=== PATIENT | male | born 1965 | race Caucasian/White ===

== ENCOUNTER 2016-12-01 14:52 | Inpatient (IN) | payer MEDICARE, OTHER ==
[2016-12-01] MEDS ORDERED: IPRATROPIUM-ALBUTEROL 3 ML NEB INHALATION PRN (18:24)
[2016-12-01] MEDS: methylPREDNISolone SOD SUCCI 125 MG/2 ML VIAL IV SCH (19:30)
[2016-12-01] MEDS: SODIUM CHLORIDE 0.9% 1,000 ML IV SCH (20:23)
[2016-12-01] MEDS: AZITHROMYCIN 500 MG in SODIUM CHLORIDE 0.9% 250 ML IVPB SCH (21:24)
[2016-12-01] MEDS: INSULIN LISPRO (humaLOG) 300 UNIT/3 ML VIAL SQ SCH (21:26)
[2016-12-01 21:27] LABS: Glucose,Whole Blood 125 mg/dL (75-99)
[2016-12-01] MEDS: IPRATROPIUM-ALBUTEROL 3 ML NEB INHALATION SCH (21:41)
[2016-12-02] MEDS: methylPREDNISolone SOD SUCCI 125 MG/2 ML VIAL IV SCH ×5 (01:13→23:17)
[2016-12-02] MEDS: clonazePAM 1 MG TAB PO SCH ×3 (01:35→20:10)
[2016-12-02] MEDS: DOCUSATE 100 MG CAP PO SCH ×3 (01:35→20:01)
[2016-12-02] MEDS: cloZAPine 100 MG TAB PO SCH ×4 (01:35→20:10)
[2016-12-02 06:43] LABS: Aty Lym Flag Slight; CH 29.7; CHCM 32.3; HCT 39.6 % (39.0-53.0); HDW 2.55; MCH 30.2 pg (25.0-35.0); MCHC 32.7 g/dL (31.0-37.0); MCV 92.4 fL (80.0-100.0); Mean Platelet Volume 7.3; RBC 4.29 m/uL (4.30-5.90); RDW 14.8 % (11.5-15.5); WBC 6.8 k/uL (3.8-10.6); WBC (Perox) 6.65
[2016-12-02 07:00] LABS: Anion Gap 7 mmol/L; Blood Urea Nitrogen 15 mg/dL (9-20); Calcium 8.9 mg/dL (8.4-10.2); Carbon Dioxide 34 mmol/L (22-30); Chloride 103 mmol/L (98-107); Glucose 136 mg/dL (74-99); Non-African American GFR(MDRD) >60 (>60 ml/min/1.73 sqM); Potassium 3.6 mmol/L (3.5-5.1); Sodium 144 mmol/L (137-145)
[2016-12-02 07:32] LABS: Add Differential Manual Differential
[2016-12-02 07:36] LABS: Metamyelocytes % 3 %; Myelocytes % 1 %; Nucleated Red Blood Cells 0 /100 WBC (0-0); Total Cells Counted 200
[2016-12-02 07:53] LABS: Glucose,Whole Blood 145 mg/dL (75-99)
[2016-12-02] MEDS: AZITHROMYCIN 500 MG in SODIUM CHLORIDE 0.9% 250 ML IVPB SCH (08:19)
[2016-12-02] MEDS ORDERED: PANTOPRAZOLE 40 MG/10 ML VIAL IVP SCH (09:00)
[2016-12-02] MEDS: IPRATROPIUM-ALBUTEROL 3 ML NEB INHALATION SCH ×4 (09:16→20:48)
[2016-12-02 09:27] LABS: Glucose,Whole Blood 129 mg/dL (75-99)
--- NOTE | 2016-12-02 09:35 | CT ---
EXAMINATION TYPE: CT brain wo con for TPA DATE OF EXAM: 12/02/2016 COMPARISON: NONE INDICATION: Stroke symptoms DLP: 1094 mGycm, Automated exposure control for dose reduction was used. CONTRAST: None CT of the brain is performed utilizing 3 mm thick sections through the posterior fossa and 3 mm thick sections through the remaining calvarium. Study is performed within 24 hours of arrival to the hosp [facility]. Cochlear implant appears present on the left causing beam hardening artifact and some limitatio n. No abnormal hyperdensity is present to suggest an acute intracranial hemorrhage. No mass lesion is evident. No acute infarcts are evident. Periventricular white matter hypodensity is present, likely on the bas is of chronic white matter ischemic changes. Ventricles and sulci are appropriate for the patient age. Paranasal sinuses appear clear. Some minimal mucosal thickening or fluid is within the inferior left mastoid air cells. Partial mastoidectomy has been performed. Electronic device overlies the left roge etal region. IMPRESSIONS: 1. No acute intracranial process.
[2016-12-02 09:38] LABS: Glucose,Whole Blood 136 mg/dL (75-99)
[2016-12-02] MEDS ORDERED: RX INFO: IV CONTRAST WAS GIVEN 1 EACH MISC MISCELLANE PRN (10:02)
[2016-12-02 10:14] LABS: CH 29.9; CHCM 32.5; HCT 40.7 % (39.0-53.0); HDW 2.56; HGB 13.2 gm/dL (13.0-17.5); MCHC 32.4 g/dL (31.0-37.0); MCV 92.7 fL (80.0-100.0); Mean Platelet Volume 7.2; RDW 14.9 % (11.5-15.5)
[2016-12-02 10:27] LABS: INR 1.1 (<1.2); Prothrombin Time 10.7 sec (9.0-12.0)
[2016-12-02 10:28] LABS: Anion Gap 9 mmol/L; Blood Urea Nitrogen 16 mg/dL (9-20); Carbon Dioxide 33 mmol/L (22-30); Chloride 103 mmol/L (98-107); Cholesterol 166 mg/dL (<200); Creatine Kinase 33 U/L (55-170); Glucose 144 mg/dL (74-99); Non-African American GFR(MDRD) >60 (>60 ml/min/1.73 sqM); Potassium 3.6 mmol/L (3.5-5.1); Sodium 145 mmol/L (137-145)
--- NOTE | 2016-12-02 10:34 | HP ---
DATE OF SERVICE: 12/01/2016 CHIEF COMPLAINTS: Cough and pneumonia. HISTORY OF PRESENT ILLNESS: This 51-year-old gentleman with past medical history of hearing defect, history of hypertension, hyperlipidemia, history of schizophrenia being followed by Dr. Valente in the outpatient setting apparently went to wedding in [place] a week ago. On coming back the patient had fever, rigors, chills and cough. The patient was admitted with multifocal pneumonia at [facility] in [place]. Because of lack of improvement Dr. Hollis discussed the case at length with me over the phone. The patient was transferred to [facility] and admitted for further evaluation and treatment. The patient is hypoxic. There is no history of fever, rigors. Patient still has cough at this time. PAST MEDICAL HISTORY: Schizophrenia, hypertension, hyperlipidemia, history of hard of hearing. Medications are: 1. Prednisone 20 mg daily. 2. Clozaril 100 mg b.i.d. 3. Clozapine 400 mg q.h.s. 4. Norvasc 5 mg p.o. bid 5. Phenergan. 6. Prilosec 20 mg with breakfast. 7. Levaquin 750 q.24 hours. 8. Lorazepam 0.5 mg p.o. b.i.d. 9. DuoNeb 3 mL q.i.d. 10. Haldol 400 mg IM q.14 days. 11. Colace 100 mg p.o. b.i.d. 12. Benztropine 1 mg p.o. b.i.d. 13. Tenormin 100 mg q.h.s. 14. Tylenol 650 q.4 p.r.n. ALLERGIES: None. FAMILY HISTORY: No history of heart disease or strokes in the family. SOCIAL HISTORY: History of smoking, no history of alcohol intake. REVIEW OF SYSTEMS: ENT: No diminished hearing or vision. CARDIOVASCULAR: No angina, palpitations. RESPIRATORY: As mentioned earlier. GI: No nausea. : No dysuria. NERVOUS SYSTEM: No numbness or weakness. ALLERGY/IMMUNOLOGY: No asthma or hayfever. MUSCULOSKELETAL: As mentioned earlier. HEMATOLOGY/ONCOLOGY: No history of anemia. ENDOCRINE: No history of diabetes or hypothyroidism. CONSTITUTIONAL: As mentioned earlier. DERMATOLOGY: Negative. RHEUMATOLOGY: Negative. PSYCHIATRY: As mentioned earlier. PHYSICAL EXAMINATION: The patient is alert and oriented x3. Pulse is 68, blood pressure 161/91, respirations 15, temperature 97.8, pulse ox 96% on 2-L. HEENT: Conjunctivae normal. Oral mucosa moist. NECK: No jugular venous distention. No carotid bruit. No lymph node enlargement. CARDIOVASCULAR: S1, S2. No S3 or S4. RESPIRATORY: Breath sounds diminished at the bases. Scattered rhonchi and expiratory wheezing and crackles. ABDOMEN: Soft, nontender, no mass palpable. LEGS: No edema, no swelling. NERVOUS SYSTEM: Higher function as mentioned. Moves all four limbs. No focal motor sensory deficits. LYMPHATICS: No lymphadenopathy in the neck, axillae or groin. SKIN: No rash, ulcer or bleeding. LABS: The current labs are not available. The previous labs are reviewed. ASSESSMENT: 1. Chronic obstructive pulmonary disease acute exacerbation with multifocal pneumonia with failure of outpatient treatment. 2. History of nicotine dependence. 3. Hypertension. 4. Hyperlipidemia. 5. History of schizophrenia. 6. History of degenerative joint disease. RECOMMENDATIONS AND DISCUSSION: In this 51-year-old gentleman who presented with multiple complex medical issues, we well monitor the patient closely. Continue the current medications. Continue symptomatic treatment. Recommend broad-spectrum IV antibiotics. Obtain the cultures. IV steroids. Bronchodilators. Pulmonary consultation. DVT prophylaxis. Guarded prognosis because of multiple complex medical issues. Discussed with family at length who understands and agrees. Further recommendations to follow. See orders for details. Copy of dictation forwarded to Dr. Valente, who is the primary physician. FERNANDEZ
--- NOTE | 2016-12-02 10:47 | XR ---
EXAMINATION TYPE: XR chest 1V portable DATE OF EXAM: 12/02/2016 COMPARISON: 06/26/2015 HISTORY: Cough and congestion with concern for pneumonia TECHNIQUE: Single frontal view of the chest is obtained. FINDINGS: There is no focal air space opacity, pleural effusion, or pneumothorax seen. Hilar promine nce is unchanged from the prior and suggestive of pulmonary arterial hypertension. There is tortuosit y of the thoracic aorta. The cardiac silhouette size is within normal limits. The osseous structure s are intact. IMPRESSION: 1. No acute cardiac pulmonary process. 2. Hilar prominence, which could be related to underlying pulmonary arterial hypertension.
[2016-12-02 10:58] LABS: Partial Thromboplastin Time 21.8 sec (22.0-30.0)
[2016-12-02 11:54] LABS: Hemoglobin A1C 6.3 % (4.2-6.1)
[2016-12-02 11:55] LABS: Glucose,Whole Blood 133 mg/dL (75-99)
--- NOTE | 2016-12-02 12:06 | CT ---
EXAMINATION TYPE: CT angio head neck DATE OF EXAM: 12/02/2016 HISTORY: Lethargy, pneumonia COMPARISON: NONE CT DLP: 290.6 mGycm. Automated Exposure Control for Dose Reduction was Utilized. TECHNIQUE: CTA scan of the neck is performed with IV Contrast, patient injected with 65 mL of Omnipa que 350, axial images are obtained, coronal and sagittal reformatted images are reviewed. Three-D rec onstructed images are created on an independent workstation and reviewed. FINDINGS: Carotid/Vascular Structures: Carotid arteries bifurcate normally into internal and external carotid a rteries. Internal carotid arteries extend to the [place]. [place] appears intact. A 1 and M1 segments appear normal. Middle cerebral artery branches appear normal. Anterior communicatin g artery appears to be patent. Right posterior communicating artery is patent. Posterior cerebral vas culature is normal. Vertebrobasilar arteries are normal. Posterior cerebral vasculature is normal. No significant atheromatous plaquing is identified. No focal stenosis is evident. There is some limit ation to the thoracic inlet due to beam hardening artifact. Three-D [id number] reconstructed images are performed separately on the [employer] computer by the chnologist. Other: Lung apices within the [id number] appear unremarkable. Portion of the thyroid visualized is normal. Subglottic airway within the [id number]-gs-[id number] is normal. Soft tissues of the neck are unremarka ble. Parotid glands appear normal. Submandibular glands are unremarkable. Submental space is normal. Small retention cyst is within the inferior anterior left maxillary sinus. Torus tubarius and fossa o f [place] appear within normal limits. Some asymmetry may be within the [place]. IMPRESSION: 1. No significant flow-limiting stenosis.
[2016-12-02] MEDS: INSULIN LISPRO (humaLOG) 300 UNIT/3 ML VIAL SQ SCH ×4 (12:21→20:55)
[2016-12-02] MEDS: PANTOPRAZOLE 40 MG TABLET PO SCH (12:22)
[2016-12-02] MEDS: SODIUM CHLORIDE 0.9% 1,000 ML IV SCH ×3 (12:24→20:10)
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
[2016-12-02 16:46] LABS: Glucose,Whole Blood 139 mg/dL (75-99)
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
[2016-12-02 20:46] LABS: Glucose,Whole Blood 130 mg/dL (75-99)
[2016-12-03 05:45] LABS: Glucose,Whole Blood 126 mg/dL (75-99)
[2016-12-03] MEDS: PANTOPRAZOLE 40 MG TABLET PO SCH (05:45)
[2016-12-03] MEDS: INSULIN LISPRO (humaLOG) 300 UNIT/3 ML VIAL SQ SCH ×4 (05:45→21:17)
[2016-12-03] MEDS: methylPREDNISolone SOD SUCCI 125 MG/2 ML VIAL IV SCH ×4 (05:47→23:18)
[2016-12-03 06:41] LABS: Basophils % (A) 1 %; CH 29.7; CHCM 32.6; Eosinophils % (A) 0 %; HCT 41.2 % (39.0-53.0); HDW 2.38; Luc % (Auto) 3; Lymphocytes # (A) 0.6 k/uL (1.0-4.8); Lymphocytes % (A) 10 %; MCH 28.9 pg (25.0-35.0); MCHC 31.5 g/dL (31.0-37.0); MCV 91.8 fL (80.0-100.0); Mean Platelet Volume 7.1; Monocytes # (A) 0.4 k/uL (0-1.0); Monocytes % (A) 7 %; Neutrophils # (A) 4.7 k/uL (1.3-7.7); Neutrophils % (A) 79 %; RBC 4.48 m/uL (4.30-5.90); RDW 14.4 % (11.5-15.5); WBC 5.9 k/uL (3.8-10.6); WBC (Perox) 6.01
[2016-12-03 06:58] LABS: Anion Gap 12 mmol/L; Blood Urea Nitrogen 17 mg/dL (9-20); Calcium 9.2 mg/dL (8.4-10.2); Carbon Dioxide 30 mmol/L (22-30); Chloride 102 mmol/L (98-107); Glucose 136 mg/dL (74-99); Non-African American GFR(MDRD) >60 (>60 ml/min/1.73 sqM); Potassium 3.5 mmol/L (3.5-5.1); Sodium 144 mmol/L (137-145)
[2016-12-03] MEDS: IPRATROPIUM-ALBUTEROL 3 ML NEB INHALATION SCH ×4 (08:27→19:11)
[2016-12-03] MEDS: cloZAPine 100 MG TAB PO SCH ×3 (09:52→21:18)
[2016-12-03] MEDS: DOCUSATE 100 MG CAP PO SCH ×2 (09:53→21:17)
[2016-12-03] MEDS: clonazePAM 1 MG TAB PO SCH ×2 (09:53→21:27)
[2016-12-03] MEDS: SODIUM CHLORIDE 0.9% 1,000 ML IV SCH ×2 (09:54→21:25)
[2016-12-03 11:25] LABS: Glucose,Whole Blood 133 mg/dL (75-99)
--- NOTE | 2016-12-03 11:41 | P.PN ---
Subjective Principal diagnosis: Acute exacerbation of COPD and altered mental status This is a 51-year-old gentleman who has a history of schizoaffective disorder, deafness, chronic and ongoing tobacco dependence, hypertension. He follows with Dr. Valente and [facility] in the [facility]. He presented there earlier this week with complaints of a nonproductive cough and fever, 2 days. He was diagnosed with a left lower lobe pneumonia and hyponatremia and was recommended inpatient IV antibiotics. At that time the patient had left AMA on 11/28/2016. He went to his [facility] worker who brought him back to the emergency department he was subsequently admitted. A computed tomography scan of the brain did not reveal any acute intracranial process. A computed tomography scan of the chest without contrast revealed bilateral pneumonic infiltrates worse in the lingula left upper lobe and left lower lobe that was actually improved compared to an old computed tomography scan in 06/21/2015. He had healed granulomatous disease. No evidence of pulmonary mass. There is no new pulmonary infiltrate compared to the previous exam. He had been initiated on Rocephin and azithromycin. He had ongoing issues with shortness of breath, cough and congestion along with altered mental status and was subsequently transferred here for further evaluation. He was originally admitted to the regular medical floor. A code stroke was called and the patient earlier this morning based on worsening mental status, drooling and right-sided weakness during a transfer to the bedside commode chair. A computed tomography scan of the brain revealed no acute intracranial process. CT angiogram revealed no significant stenosis. His chest x-ray reveals no acute cardiopulmonary process. There is some underlying pulmonary arterial hypertension suspected secondary to hilar prominence. He is seen today in consultation on the selective care unit. No information is able to be pain from the patient. He is currently maintaining O2 saturations in the mid 90s on 4 L/m per nasal cannula. He is afebrile. No leukocytosis. No tachycardia, no tachypnea. Hemodynamically stable. Patient was reevaluated today on 12/03/2016, seems to be less short of breath, patient remains sleepy but arousable, does not talk much, speech seems to be garbled when he attempts to talk. Denies any specific complaints. I reviewed his chest x-ray and it was relatively unremarkable. Although his CT of the chest showed some possible old postinflammatory changes which have improved compared to previous scan of the chest. But clearly the chest x-ray itself does not speak in favor of pneumonia. CBC is normal and basic metabolic profile is normal. Objective - Vital Signs Vital signs: Vital Signs Temp 97.5 F L 12/03/16 04:00 Pulse 72 12/03/16 08:30 Resp 16 12/03/16 08:00 BP 131/64 12/03/16 08:00 Pulse Ox 92 L 12/03/16 08:00 Intake & Output 12/02/16 12/03/16 12/03/16 18:59 06:59 18:59 Intake Total 300 800 Output Total 2200 1400 Balance -1900 -600 Weight 72.1 kg Intake: Intake, IV Titration 300 800 Amount Sodium Chloride 0.9% 1, 300 700 000 ml @ 100 mls/hr IV . Q10H [facility] Rx#:[id number] cefTRIAXone 1,000 mg In 100 Sodium Chloride 0.9% 50 ml @ 100 mls/hr IVPB Q24HR [facility] Rx#:[id number] Oral 0 Output: Urine 2200 1400 Straight 850 400 Other: Voiding Method Incontinent Incontinent Incontinent # Voids 1 3 - Exam GENERAL EXAM: Drowsy, difficult to arouse. HEAD: Normocephalic. EYES: Normal reaction of pupils, equal size. NOSE: Clear with pink turbinates. THROAT: No erythema or exudates. NECK: No masses, no JVD. CHEST: No chest wall deformity. LUNGS: Equal air entry with bilateral wheezing, few scattered rhonchi. Diminished.. CVS: S1 and S2 normal with no audible mumurs, regular rhythm. ABDOMEN: No hepatosplenomegaly, normal bowel sounds, no guarding or rigidity. Extremities: There is trace peripheral edema. No clubbing, no cyanosis. Peripheral pulses are intact. - Labs CBC & Chem 7: 12/03/16 06:10 12/03/16 06:07 Labs: Abnormal Lab Results - Last 24 Hours (Table) 12/02/16 12/02/16 12/02/16 Range/Units 06:21 11:53 16:44 Lymphocytes # (1.0-4.8) k/uL Creatinine (0.66-1.25) mg/dL Glucose (74-99) mg/dL POC Glucose (mg/dL) 133 H 139 H (75-99) mg/dL Hemoglobin A1c 6.3 H (4.2-6.1) % 12/02/16 12/03/16 12/03/16 Range/Units 20:45 05:44 06:07 Lymphocytes # (1.0-4.8) k/uL Creatinine 0.60 L (0.66-1.25) mg/dL Glucose 136 H (74-99) mg/dL POC Glucose (mg/dL) 130 H 126 H (75-99) mg/dL Hemoglobin A1c (4.2-6.1) % 12/03/16 12/03/16 Range/Units 06:10 11:21 Lymphocytes # 0.6 L (1.0-4.8) k/uL Creatinine (0.66-1.25) mg/dL Glucose (74-99) mg/dL POC Glucose (mg/dL) 133 H (75-99) mg/dL Hemoglobin A1c (4.2-6.1) % Assessment and Plan Plan: #1 Acute exacerbation of chronic obstructive pulmonary disease, complicated by purulent tracheobronchitis versus community-acquired pneumonia. Clinically and based on the chest x-ray, I strongly doubt pneumonia. I believe the findings on the CT of the chest are chronic and mostly postinflammatory in nature. #2 Altered mental status of unclear etiology. Computed tomography scan of the brain reveals no acute intracranial process. CT angiogram reveals no significant stenosis. Neurology consult pending. #3 Chronic and ongoing tobacco dependence. #4 History of hypertension. #5 History of schizophrenia. #6 Hyperlipidemia. #7 History of degenerative joint disease. Recommendation: Continue antibiotics empirically, continue bronchodilators, mental status and neurological status is being addressed by neurology on consultation. We'll continue to follow. Time with Patient: Less than 30
[2016-12-03] MEDS: AZITHROMYCIN 500 MG in SODIUM CHLORIDE 0.9% 250 ML IVPB SCH (12:01)
--- NOTE | 2016-12-03 12:05 | CT ---
EXAMINATION TYPE: CT brain wo con DATE OF EXAM: 12/03/2016 COMPARISON: Yesterday HISTORY: CVA CT DLP: 1009.0 mGycm Automated exposure control for dose reduction was used. FINDINGS: Ventricles are fairly normal size. There is no mass effect nor midline shift. There is no sign of int racranial hemorrhage. There is metal artifact from left side implant at the temporal bone. IMPRESSION: NEGATIVE CT SCAN OF THE BRAIN. NO CHANGE COMPARED TO YESTERDAY.
[2016-12-03 16:52] LABS: Glucose,Whole Blood 127 mg/dL (75-99)
--- NOTE | 2016-12-03 20:26 | P.PN ---
Subjective This patient is a 51-year-old male who is being followed closely for history of recent TIA versus stroke. Patient was unable to have MRI of the brain due to a hearing device implanted in his left side. He has a history of schizophrenia and is being followed by his primary care physician for this condition. His legal guardian was at bedside today and states that he has been living independently at home and was managing fairly well. He does continue to have difficulty with his speech but he does lip read. He was sent for a repeat computed tomography scan of the brain today which reveals no acute changes. No evidence of acute stroke or hemorrhage. We will continue close neurological follow this patient during this admission. Objective - Vital Signs Vital signs: Vital Signs Temp 97.5 F L 12/03/16 04:00 Pulse 88 12/03/16 19:19 Resp 18 12/03/16 16:00 BP 150/94 12/03/16 16:00 Pulse Ox 93 L 12/03/16 16:00 Intake & Output 12/03/16 12/03/16 12/04/16 06:59 18:59 06:59 Intake Total 800 Output Total 1400 Balance -600 Weight 72.1 kg 72.1 kg Intake: Intake, IV Titration 800 Amount Sodium Chloride 0.9% 1, 700 000 ml @ 100 mls/hr IV . Q10H [facility] Rx#:[id number] cefTRIAXone 1,000 mg In 100 Sodium Chloride 0.9% 50 ml @ 100 mls/hr IVPB Q24HR [facility] Rx#:[id number] Oral 0 Output: Urine 1400 Straight 400 Other: Voiding Method Incontinent Toilet Incontinent # Voids 3 4 - Exam Physical examination: PHYSICAL EXAMINATION: Patient is resting comfortably in bed. VITAL SIGNS: Blood pressure is [150/94]. Heart rate is [76]. Respiration is [18] . Temperature is [97.5]. HEENT: Head is atraumatic, neck is supple, there were no carotid bruits. CHEST: Lungs are clear to auscultation and percussion. CARDIAC: S1, S2 normal rate and rhythm. There is no murmur. ABDOMEN: Soft and nontender. Bowel sounds are present. EXTREMITIES: There is no pedal edema. Peripheral pulses are present . Neurological examination: Patient neurological examinations unchanged from yesterday. - Labs CBC & Chem 7: 12/03/16 06:10 12/03/16 06:07 Labs: Abnormal Lab Results - Last 24 Hours (Table) 12/02/16 12/03/16 12/03/16 Range/Units 20:45 05:44 06:07 Lymphocytes # (1.0-4.8) k/uL Creatinine 0.60 L (0.66-1.25) mg/dL Glucose 136 H (74-99) mg/dL POC Glucose (mg/dL) 130 H 126 H (75-99) mg/dL 12/03/16 12/03/16 12/03/16 Range/Units 06:10 11:21 16:50 Lymphocytes # 0.6 L (1.0-4.8) k/uL Creatinine (0.66-1.25) mg/dL Glucose (74-99) mg/dL POC Glucose (mg/dL) 133 H 127 H (75-99) mg/dL Assessment and Plan (1) Acute encephalopathy Status: Acute Code(s): G93.40 - ENCEPHALOPATHY, UNSPECIFIED (2) TIA (transient ischemic attack) Status: Acute Code(s): G45.9 - TRANSIENT CEREBRAL ISCHEMIC ATTACK, UNSPECIFIED (3) Schizophrenia Status: Acute Code(s): F20.9 - SCHIZOPHRENIA, UNSPECIFIED (4) Pneumonia Status: Acute Code(s): J18.9 - PNEUMONIA, UNSPECIFIED ORGANISM (5) COPD (chronic obstructive pulmonary disease) Status: Acute Code(s): J44.9 - CHRONIC OBSTRUCTIVE PULMONARY DISEASE, UNSPECIFIED Plan: This patient is a 51-year-old male with a complex past medical history which includes history of schizophrenia and mental impairment. Patient was admitted to hospital for treatment of pneumonia and chronic bronchitis. He has been followed by pulmonary medicine. He is currently on antibiotic therapy. Early this morning at 9 AM a code stroke was initiated for this patient as he developed sudden onset of right-sided weakness. He underwent a computed tomography scan of the brain as well as a CTA angiogram both of which were negative. Neuro interventional group was contacted and he was deemed not to be a candidate for TPA or other intervention. He was transferred to [facility] for close monitoring. His neurological examination at this time is limited as he is not able to follow much commands. He does have some evidence of aphasia which may be old. His neuro imaging studies were reviewed today and is noted were negative. We have recommended a follow-up computed tomography scan of the brain for tomorrow. He is unable to have an MRI at this time until he is cleared as he has some implantable device on his left retro-orbital region. We will continue complete stroke evaluation for the patient. His overall prognosis at this time remains very guarded.
[2016-12-03 20:32] LABS: Glucose,Whole Blood 114 mg/dL (75-99)
--- NOTE | 2016-12-04 00:12 | P.PN ---
Subjective Principal diagnosis: Acute COPD exacerbation and purulent tracheobronchitis This is a 51-year-old gentleman who has a history of schizoaffective disorder, deafness, chronic and ongoing tobacco dependence, hypertension who presented there earlier this week with complaints of a nonproductive cough and fever, 2 days. He was diagnosed with a left lower lobe pneumonia and hyponatremia and was recommended inpatient IV antibiotics. At that time the patient had left AMA on 11/28/2016. Patient came back to the hospital and found to have encephalopathic. 12/03/2016 Patient is very drowsy but still a arousable. Denies any complaints of chest pain. No nausea vomiting or abdominal pain chest x-ray and CT chest that was done showed improvement in inflammatory changes.. Patient had repeat computed tomography scan of the head was done due to and Savella for the showed no acute CVA. Neurology and pulmonary is following this patient. Objective - Vital Signs Vital signs: Vital Signs Temp 97.5 F L 12/03/16 04:00 Pulse 88 12/03/16 19:19 Resp 18 12/03/16 16:00 BP 150/94 12/03/16 16:00 Pulse Ox 93 L 12/03/16 16:00 Intake & Output 12/03/16 12/03/16 12/04/16 06:59 18:59 06:59 Intake Total 800 Output Total 1400 Balance -600 Weight 72.1 kg 72.1 kg Intake: Intake, IV Titration 800 Amount Sodium Chloride 0.9% 1, 700 000 ml @ 100 mls/hr IV . Q10H [facility] Rx#:[id number] cefTRIAXone 1,000 mg In 100 Sodium Chloride 0.9% 50 ml @ 100 mls/hr IVPB Q24HR [facility] Rx#:[id number] Oral 0 Output: Urine 1400 Straight 400 Other: Voiding Method Incontinent Toilet Incontinent # Voids 3 4 - Exam PHYSICAL EXAMINATION: Patient is lying in the bed comfortably, no acute distress, awake alert but seems to be very drowsy.. HEENT: Normocephalic. Neck is supple. Pupils reactive. Nostrils clear. Oral cavity is moist. Ears reveal no drainage. Neck reveals no JVD, carotid bruits, or thyromegaly. CHEST EXAMINATION: Trachea is central. Symmetrical expansion. Lateral bronchi and minimal wheezing positive CARDIAC: Normal S1, S2 with no gallops. No murmurs ABDOMEN: Soft. Bowel sounds normal. No organomegaly. No abdominal bruits. Extremities reveal no edema. No clubbing or cyanosis Neurologically awake, alert, oriented x3 with well-coordinated movements. Skin: no rash or skin lesions Musculoskeletal: no joint swelling or deformity. - Labs CBC & Chem 7: 12/03/16 06:10 12/03/16 06:07 Labs: Abnormal Lab Results - Last 24 Hours (Table) 12/03/16 12/03/16 12/03/16 Range/Units 05:44 06:07 06:10 Lymphocytes # 0.6 L (1.0-4.8) k/uL Creatinine 0.60 L (0.66-1.25) mg/dL Glucose 136 H (74-99) mg/dL POC Glucose (mg/dL) 126 H (75-99) mg/dL 12/03/16 12/03/16 12/03/16 Range/Units 11:21 16:50 20:31 Lymphocytes # (1.0-4.8) k/uL Creatinine (0.66-1.25) mg/dL Glucose (74-99) mg/dL POC Glucose (mg/dL) 133 H 127 H 114 H (75-99) mg/dL Assessment and Plan Plan: #1 Acute exacerbation of chronic obstructive pulmonary disease, complicated by purulent tracheobronchitis versus community-acquired pneumonia. #2 Altered mental status/encephalopathy of unclear etiology. Computed tomography scan of the brain reveals no acute intracranial process. CT angiogram reveals no significant stenosis. Neurology is following. Repeat computed tomography scan showed no acute process #3 Chronic and ongoing tobacco dependence. #4 History of hypertension. #5 History of schizophrenia. #6 Hyperlipidemia. Plan: Patiently continued on antibiotics in the form of ceftriaxone and azithromycin. Continue the breathing treatments. And follow closely. Neurology and pulmonary is on board. Patient is still encephalopathic but improving slowly. Note as of CVA noted in the repeat CT head. Further recommendations based on the clinical course Time with Patient: Greater than 30
[2016-12-04] MEDS: methylPREDNISolone SOD SUCCI 125 MG/2 ML VIAL IV SCH ×4 (05:26→23:11)
[2016-12-04] MEDS: SODIUM CHLORIDE 0.9% 1,000 ML IV SCH ×2 (05:26→18:07)
[2016-12-04] MEDS: PANTOPRAZOLE 40 MG TABLET PO SCH (05:28)
[2016-12-04 06:00] LABS: Glucose,Whole Blood 118 mg/dL (75-99)
[2016-12-04] MEDS: INSULIN LISPRO (humaLOG) 300 UNIT/3 ML VIAL SQ SCH ×4 (06:07→22:29)
[2016-12-04 06:55] LABS: Basophils % (A) 0 %; CH 29.8; CHCM 32.6; Eosinophils % (A) 0 %; HCT 42.7 % (39.0-53.0); HDW 2.37; HGB 13.7 gm/dL (13.0-17.5); Luc # (Auto) 0.16; Luc % (Auto) 2; Lymphocytes # (A) 0.6 k/uL (1.0-4.8); Lymphocytes % (A) 9 %; MCH 29.4 pg (25.0-35.0); MCV 91.8 fL (80.0-100.0); Monocytes # (A) 0.5 k/uL (0-1.0); Monocytes % (A) 8 %; Neutrophils # (A) 5.3 k/uL (1.3-7.7); Neutrophils % (A) 80 %; RBC 4.65 m/uL (4.30-5.90); RDW 14.6 % (11.5-15.5); WBC 6.6 k/uL (3.8-10.6); WBC (Perox) 6.74
[2016-12-04 07:19] LABS: Anion Gap 10 mmol/L; Blood Urea Nitrogen 22 mg/dL (9-20); Calcium 9.6 mg/dL (8.4-10.2); Carbon Dioxide 31 mmol/L (22-30); Chloride 107 mmol/L (98-107); Glucose 132 mg/dL (74-99); Non-African American GFR(MDRD) >60 (>60 ml/min/1.73 sqM); Potassium 3.9 mmol/L (3.5-5.1); Sodium 148 mmol/L (137-145)
[2016-12-04] MEDS: IPRATROPIUM-ALBUTEROL 3 ML NEB INHALATION SCH ×4 (08:35→20:53)
--- NOTE | 2016-12-04 10:56 | P.PN ---
Subjective Principal diagnosis: Acute exacerbation of COPD and altered mental status This is a 51-year-old gentleman who has a history of schizoaffective disorder, deafness, chronic and ongoing tobacco dependence, hypertension. He follows with Dr. Valente and [facility] the [facility]. He presented there earlier this week with complaints of a nonproductive cough and fever, 2 days. He was diagnosed with a left lower lobe pneumonia and hyponatremia and was recommended inpatient IV antibiotics. At that time the patient had left AMA on 11/28/2016. He went to his [facility] worker who brought him back to the emergency department he was subsequently admitted. A computed tomography scan of the brain did not reveal any acute intracranial process. A computed tomography scan of the chest without contrast revealed bilateral pneumonic infiltrates worse in the lingula left upper lobe and left lower lobe that was actually improved compared to an old computed tomography scan in 06/21/2015. He had healed granulomatous disease. No evidence of pulmonary mass. There is no new pulmonary infiltrate compared to the previous exam. He had been initiated on Rocephin and azithromycin. He had ongoing issues with shortness of breath, cough and congestion along with altered mental status and was subsequently transferred here for further evaluation. He was originally admitted to the regular medical floor. A code stroke was called and the patient earlier this morning based on worsening mental status, drooling and right-sided weakness during a transfer to the bedside commode chair. A computed tomography scan of the brain revealed no acute intracranial process. CT angiogram revealed no significant stenosis. His chest x-ray reveals no acute cardiopulmonary process. There is some underlying pulmonary arterial hypertension suspected secondary to hilar prominence. He is seen today in consultation on the selective care unit. No information is able to be pain from the patient. He is currently maintaining O2 saturations in the mid 90s on 4 L/m per nasal cannula. He is afebrile. No leukocytosis. No tachycardia, no tachypnea. Hemodynamically stable. Patient was reevaluated today on 12/03/2016, seems to be less short of breath, patient remains sleepy but arousable, does not talk much, speech seems to be garbled when he attempts to talk. Denies any specific complaints. I reviewed his chest x-ray and it was relatively unremarkable. Although his CT of the chest showed some possible old postinflammatory changes which have improved compared to previous scan of the chest. But clearly the chest x-ray itself does not speak in favor of pneumonia. CBC is normal and basic metabolic profile is normal. Patient was reevaluated today, this is on 12/04/2016, patient is more awake, seems to be a bit more appropriate today, but still has a long way to go. Patient continues to have cough and wheezing, and apparently he failed his a swallow evaluation, and he is presently nothing by mouth. Hopefully the swallow evaluation will be repeated next week, and if he continues to fail may have to consider a PEG tube placement in this patient. On physical examination he continues to have diffuse rhonchi and wheezes bilaterally and he remains on bronchodilators. Objective - Vital Signs Vital signs: Vital Signs Temp 96.9 F L 12/04/16 08:00 Pulse 76 12/04/16 08:54 Resp 22 12/04/16 08:00 BP 125/83 12/04/16 08:00 Pulse Ox 95 12/04/16 08:35 Intake & Output 12/03/16 12/04/16 12/04/16 18:59 06:59 18:59 Intake Total 700 Balance 700 Weight 72.1 kg 68.9 kg Intake: Intake, IV Titration 700 Amount Sodium Chloride 0.9% 1, 700 000 ml @ 100 mls/hr IV . Q10H [facility] Rx#:[id number] Other: Voiding Method Toilet Toilet Toilet Incontinent Incontinent Incontinent # Voids 4 1 - Exam GENERAL EXAM: Drowsy, difficult to arouse. HEAD: Normocephalic. EYES: Normal reaction of pupils, equal size. NOSE: Clear with pink turbinates. THROAT: No erythema or exudates. NECK: No masses, no JVD. CHEST: No chest wall deformity. LUNGS: Equal air entry with bilateral wheezing, few scattered rhonchi. Diminished.. CVS: S1 and S2 normal with no audible mumurs, regular rhythm. ABDOMEN: No hepatosplenomegaly, normal bowel sounds, no guarding or rigidity. Extremities: There is trace peripheral edema. No clubbing, no cyanosis. Peripheral pulses are intact. - Labs CBC & Chem 7: 12/04/16 06:26 12/04/16 06:25 Labs: Abnormal Lab Results - Last 24 Hours (Table) 12/03/16 12/03/16 12/03/16 Range/Units 11:21 16:50 20:31 Lymphocytes # (1.0-4.8) k/uL Sodium (137-145) mmol/L Carbon Dioxide (22-30) mmol/L BUN (9-20) mg/dL Glucose (74-99) mg/dL POC Glucose (mg/dL) 133 H 127 H 114 H (75-99) mg/dL 12/04/16 12/04/16 12/04/16 Range/Units 05:55 06:25 06:26 Lymphocytes # 0.6 L (1.0-4.8) k/uL Sodium 148 H (137-145) mmol/L Carbon Dioxide 31 H (22-30) mmol/L BUN 22 H (9-20) mg/dL Glucose 132 H (74-99) mg/dL POC Glucose (mg/dL) 118 H (75-99) mg/dL Assessment and Plan Plan: #1 Acute exacerbation of chronic obstructive pulmonary disease, complicated by purulent tracheobronchitis versus community-acquired pneumonia. Versus aspiration pneumonitis. Clinically and based on the chest x-ray, I strongly doubt pneumonia. I believe the findings on the CT of the chest are chronic and mostly postinflammatory in nature. #2 Altered mental status of unclear etiology. Computed tomography scan of the brain reveals no acute intracranial process. CT angiogram reveals no significant stenosis. Neurology consult pending. #3 Chronic and ongoing tobacco dependence. #4 History of hypertension. #5 History of schizophrenia. #6 Hyperlipidemia. #7 History of degenerative joint disease. 8 suspect ongoing microaspiration which may explain his CT of the chest findings not clearly appreciated on the chest x-ray. Recommendation: Continue antibiotics empirically, continue bronchodilators, mental status and neurological status is being addressed by neurology on consultation. We'll continue to follow. Repeat swallow evaluation tomorrow, and if the patient continues to have issues with swallowing evaluation, may have to consider a PEG tube placement. Time with Patient: Less than 30
[2016-12-04 11:31] LABS: Glucose,Whole Blood 129 mg/dL (75-99)
[2016-12-04] MEDS: AZITHROMYCIN 500 MG in SODIUM CHLORIDE 0.9% 250 ML IVPB SCH (12:41)
[2016-12-04] MEDS: cloZAPine 100 MG TAB PO SCH ×3 (12:45→20:54)
[2016-12-04] MEDS: BENZTROPINE MESYLATE 1 MG TAB PO SCH ×2 (12:46→20:55)
[2016-12-04] MEDS: DOCUSATE 100 MG CAP PO SCH ×2 (12:46→20:54)
[2016-12-04] MEDS: amLODIPine 5 MG TAB PO SCH (12:46)
[2016-12-04] MEDS: clonazePAM 1 MG TAB PO SCH ×2 (12:46→20:54)
[2016-12-04 16:30] LABS: Glucose,Whole Blood 119 mg/dL (75-99)
[2016-12-04] MEDS: DEXTROSE 5%-0.45% NACL 1,000 ML IV SCH (18:07)
[2016-12-04 20:46] LABS: Glucose,Whole Blood 188 mg/dL (75-99)
--- NOTE | 2016-12-05 01:49 | P.PN ---
Subjective Principal diagnosis: Acute COPD exacerbation and purulent tracheobronchitis This is a 51-year-old gentleman who has a history of schizoaffective disorder, deafness, chronic and ongoing tobacco dependence, hypertension who presented there earlier this week with complaints of a nonproductive cough and fever, 2 days. He was diagnosed with a left lower lobe pneumonia and hyponatremia and was recommended inpatient IV antibiotics. At that time the patient had left AMA on 11/28/2016. Patient came back to the hospital and found to have encephalopathic. 12/03/2016 Patient is very drowsy but still a arousable. Denies any complaints of chest pain. No nausea vomiting or abdominal pain chest x-ray and CT chest that was done showed improvement in inflammatory changes.. Patient had repeat computed tomography scan of the head was done due to and Savella for the showed no acute CVA. Neurology and pulmonary is following this patient. 12/04/2016 Patient is more awake and oriented today. Patient otherwise feels sterilization currently nothing by mouth and will be started on D5 half normal saline. Patient is to have wheezing and decreased air entry bilaterally. Swallow study will be attempted again next week. No fever no chills. Objective - Vital Signs Vital signs: Vital Signs Temp 98.3 F 12/04/16 15:23 Pulse 82 12/04/16 21:02 Resp 14 12/04/16 16:00 BP 154/93 12/04/16 15:23 Pulse Ox 96 12/04/16 17:11 Intake & Output 12/04/16 12/04/16 12/05/16 06:59 18:59 06:59 Intake Total 700 Balance 700 Weight 68.9 kg Intake: Intake, IV Titration 700 Amount Sodium Chloride 0.9% 1, 700 000 ml @ 100 mls/hr IV . Q10H [facility] Rx#:[id number] Other: Voiding Method Toilet Toilet Incontinent Incontinent # Voids 1 3 2 - Exam PHYSICAL EXAMINATION: Patient is lying in the bed comfortably, no acute distress, awake alert but seems to be very drowsy.. HEENT: Normocephalic. Neck is supple. Pupils reactive. Nostrils clear. Oral cavity is moist. Ears reveal no drainage. Neck reveals no JVD, carotid bruits, or thyromegaly. CHEST EXAMINATION: Trachea is central. Symmetrical expansion. biLateral rhonchi and decreased air entry and minimal wheezing positive CARDIAC: Normal S1, S2 with no gallops. No murmurs ABDOMEN: Soft. Bowel sounds normal. No organomegaly. No abdominal bruits. Extremities reveal no edema. No clubbing or cyanosis Neurologically awake, alert, oriented x3 with well-coordinated movements. Patient is deaf Skin: no rash or skin lesions Musculoskeletal: no joint swelling or deformity. - Labs CBC & Chem 7: 12/04/16 06:26 12/04/16 06:25 Labs: Abnormal Lab Results - Last 24 Hours (Table) 12/04/16 12/04/16 12/04/16 Range/Units 05:55 06:25 06:26 Lymphocytes # 0.6 L (1.0-4.8) k/uL Sodium 148 H (137-145) mmol/L Carbon Dioxide 31 H (22-30) mmol/L BUN 22 H (9-20) mg/dL Glucose 132 H (74-99) mg/dL POC Glucose (mg/dL) 118 H (75-99) mg/dL 12/04/16 12/04/16 12/04/16 Range/Units 11:22 16:24 20:44 Lymphocytes # (1.0-4.8) k/uL Sodium (137-145) mmol/L Carbon Dioxide (22-30) mmol/L BUN (9-20) mg/dL Glucose (74-99) mg/dL POC Glucose (mg/dL) 129 H 119 H 188 H (75-99) mg/dL Assessment and Plan Plan: #1 Acute exacerbation of chronic obstructive pulmonary disease, complicated by purulent tracheobronchitis versus community-acquired pneumonia. #2 Altered mental status/encephalopathy of unclear etiology. Computed tomography scan of the brain reveals no acute intracranial process. CT angiogram reveals no significant stenosis. Neurology is following. Repeat computed tomography scan showed no acute process #3 Chronic and ongoing tobacco dependence. #4 History of hypertension. #5 History of schizophrenia. #6 Hyperlipidemia. #7 difficulty swallowing and failed swallow study. We'll start on gentle hydration and repeat swallow evaluation Plan: Patiently continued on antibiotics in the form of ceftriaxone and azithromycin. Continue the breathing treatments. And follow closely. Neurology and pulmonary is on board. Patient is still encephalopathic but improving slowly. Note as of CVA noted in the repeat CT head. Patient fails swallow evaluation and is nothing by mouth. Further recommendations based on the clinical course Time with Patient: Greater than 30
[2016-12-05] MEDS: DEXTROSE 5%-0.45% NACL 1,000 ML IV SCH ×2 (04:55→20:35)
[2016-12-05 05:41] LABS: Glucose,Whole Blood 125 mg/dL (75-99)
[2016-12-05] MEDS: INSULIN LISPRO (humaLOG) 300 UNIT/3 ML VIAL SQ SCH ×4 (06:10→21:54)
[2016-12-05] MEDS: PANTOPRAZOLE 40 MG TABLET PO SCH (06:10)
[2016-12-05] MEDS: methylPREDNISolone SOD SUCCI 125 MG/2 ML VIAL IV SCH ×4 (06:12→23:30)
[2016-12-05] MEDS: IPRATROPIUM-ALBUTEROL 3 ML NEB INHALATION SCH ×4 (09:00→19:38)
[2016-12-05] MEDS: BENZTROPINE MESYLATE 1 MG TAB PO SCH ×2 (09:56→20:35)
[2016-12-05] MEDS: clonazePAM 1 MG TAB PO SCH ×2 (09:56→20:35)
[2016-12-05] MEDS: amLODIPine 5 MG TAB PO SCH (09:56)
[2016-12-05] MEDS: DOCUSATE 100 MG CAP PO SCH ×2 (09:56→20:35)
[2016-12-05] MEDS: AZITHROMYCIN 500 MG in SODIUM CHLORIDE 0.9% 250 ML IVPB SCH (09:56)
[2016-12-05] MEDS: cloZAPine 100 MG TAB PO SCH ×3 (09:57→23:29)
[2016-12-05 11:44] LABS: Glucose,Whole Blood 169 mg/dL (75-99)
--- NOTE | 2016-12-05 11:55 | P.PN ---
Subjective Progress note dated 12/05/2016 This is a 51-year-old male seen by my partner yesterday. He has a history of acute exacerbation of COPD, treated by purulent tracheobronchitis versus community-acquired pneumonia/aspiration pneumonia. We strongly doubt pneumonia though based on his chest x-ray and his history. His altered mental status changes but a computed tomography scan which showed no evidence of an acute process chronic and ongoing tobacco dependence hypertension schizophrenia hyperlipidemia DJD. The patient seemed be doing better. Feels better. Less short of breath. Currently on antibiotics bronchodilators and corticosteroids. Should have a swallow evaluation is not ready done. May have to have a PEG tube placement. Other than that seems be doing reasonably well. Objective - Vital Signs Vital signs: Vital Signs Temp 97.3 F L 12/05/16 11:44 Pulse 70 12/05/16 11:44 Resp 16 12/05/16 11:44 BP 123/74 12/05/16 11:44 Pulse Ox 93 L 12/05/16 11:44 Intake & Output 12/04/16 12/05/16 12/05/16 18:59 06:59 18:59 Intake Total 640 Balance 640 Weight 69.8 kg Intake: Intake, IV Titration 640 Amount Dextrose 5%-0.45% NaCl 1, 640 000 ml @ 80 mls/hr IV . [id number] [facility] Rx#:[id number] Other: Voiding Method Toilet Toilet Toilet Incontinent Incontinent Incontinent # Voids 3 3 - Exam No acute distress, oriented 3. No respiratory distress. HEENT examination is grossly unremarkable. Mucous membranes are moist. No oral lesions. Neck supple. Full range of motion. No adenopathy or thyromegaly. Cardiovascular examination reveals regular rhythm rate. S1-S2 normal. No S3- S4 or murmur. Lungs reveal a few coarse rhonchi. Breath sounds are diminished. Some expiratory wheezes. Breath sounds are equal but diminished throughout. There is prolongation on forced maneuver. Abdomen soft bowel sounds are heard. Semis are intact. No cyanosis clubbing or edema. Skin without rash. Neurologic examination is nonfocal. - Labs CBC & Chem 7: 12/04/16 06:26 12/04/16 06:25 Labs: Abnormal Lab Results - Last 24 Hours (Table) 12/04/16 12/04/16 12/05/16 Range/Units 16:24 20:44 05:39 POC Glucose (mg/dL) 119 H 188 H 125 H (75-99) mg/dL 12/05/16 Range/Units 11:39 POC Glucose (mg/dL) 169 H (75-99) mg/dL Assessment and Plan (1) Hypertension Status: Acute (2) DJD (degenerative joint disease) Status: Acute (3) Acute encephalopathy Status: Acute (4) Pneumonia Status: Acute (5) Schizophrenia Status: Acute (6) TIA (transient ischemic attack) Status: Acute (7) COPD (chronic obstructive pulmonary disease) Status: Acute Plan: Plan dated 12/05/2016 The patient's overall lung status seems to be somewhat improved. We'll continue to follow closely. The patient will continue on oxygen therapy bronchodilators corticosteroids and antibiotics. Neurology is following his mental status is reasonably evaluated by speech pathology for his swallow competency. We'll continue to follow. Prognosis is guarded. Time with Patient: Less than 30
[2016-12-05 15:44] LABS: Anion Gap 11 mmol/L; Blood Urea Nitrogen 22 mg/dL (9-20); Calcium 9.3 mg/dL (8.4-10.2); Carbon Dioxide 27 mmol/L (22-30); Chloride 106 mmol/L (98-107); Glucose 162 mg/dL (74-99); Non-African American GFR(MDRD) >60 (>60 ml/min/1.73 sqM); Potassium 3.5 mmol/L (3.5-5.1); Sodium 144 mmol/L (137-145)
[2016-12-05 16:56] LABS: Glucose,Whole Blood 148 mg/dL (75-99)
[2016-12-05 20:51] LABS: Glucose,Whole Blood 201 mg/dL (75-99)
--- NOTE | 2016-12-06 00:08 | P.PN ---
Subjective Principal diagnosis: Acute COPD exacerbation and purulent tracheobronchitis This is a 51-year-old gentleman who has a history of schizoaffective disorder, deafness, chronic and ongoing tobacco dependence, hypertension who presented there earlier this week with complaints of a nonproductive cough and fever, 2 days. He was diagnosed with a left lower lobe pneumonia and hyponatremia and was recommended inpatient IV antibiotics. At that time the patient had left AMA on 11/28/2016. Patient came back to the hospital and found to have encephalopathic. 12/03/2016 Patient is very drowsy but still a arousable. Denies any complaints of chest pain. No nausea vomiting or abdominal pain chest x-ray and CT chest that was done showed improvement in inflammatory changes.. Patient had repeat computed tomography scan of the head was done due to and Savella for the showed no acute CVA. Neurology and pulmonary is following this patient. 12/04/2016 Patient is more awake and oriented today. currently nothing by mouth and will be started on D5 half normal saline. Patient is to have wheezing and decreased air entry bilaterally. Swallow study will be attempted again next week. No fever no chills. 12/05/2016 Patient is more awake and oriented. Patient was started on soft diet. No fever no chills. No complaints of chest pain or short of breath. Objective - Vital Signs Vital signs: Vital Signs Temp 97.6 F 12/05/16 16:00 Pulse 86 12/05/16 19:54 Resp 18 12/05/16 16:00 BP 121/69 12/05/16 16:00 Pulse Ox 93 L 12/05/16 16:00 Intake & Output 12/05/16 12/05/16 12/06/16 06:59 18:59 06:59 Intake Total 640 400 Balance 640 400 Weight 69.8 kg Intake: Intake, IV Titration 640 Amount Dextrose 5%-0.45% NaCl 1, 640 000 ml @ 80 mls/hr IV . [id number] [facility] Rx#:[id number] Oral 400 Other: Voiding Method Toilet Toilet Incontinent Incontinent # Voids 3 2 - Exam PHYSICAL EXAMINATION: Patient is lying in the bed comfortably, no acute distress, awake alert but seems to be very drowsy.. HEENT: Normocephalic. Neck is supple. Pupils reactive. Nostrils clear. Oral cavity is moist. Ears reveal no drainage. Neck reveals no JVD, carotid bruits, or thyromegaly. CHEST EXAMINATION: Trachea is central. Symmetrical expansion. biLateral rhonchi and decreased air entry and minimal wheezing positive CARDIAC: Normal S1, S2 with no gallops. No murmurs ABDOMEN: Soft. Bowel sounds normal. No organomegaly. No abdominal bruits. Extremities reveal no edema. No clubbing or cyanosis Neurologically awake, alert, oriented x3 with well-coordinated movements. Patient is deaf Skin: no rash or skin lesions Musculoskeletal: no joint swelling or deformity. - Labs CBC & Chem 7: 12/04/16 06:26 12/05/16 15:12 Labs: Abnormal Lab Results - Last 24 Hours (Table) 12/05/16 12/05/16 12/05/16 Range/Units 05:39 11:39 15:12 BUN 22 H (9-20) mg/dL Creatinine 0.60 L (0.66-1.25) mg/dL Glucose 162 H (74-99) mg/dL POC Glucose (mg/dL) 125 H 169 H (75-99) mg/dL 12/05/16 12/05/16 Range/Units 16:53 20:49 BUN (9-20) mg/dL Creatinine (0.66-1.25) mg/dL Glucose (74-99) mg/dL POC Glucose (mg/dL) 148 H 201 H (75-99) mg/dL Assessment and Plan Plan: #1 Acute exacerbation of chronic obstructive pulmonary disease, complicated by purulent tracheobronchitis versus community-acquired pneumonia. #2 Altered mental status/encephalopathy of unclear etiology. Computed tomography scan of the brain reveals no acute intracranial process. CT angiogram reveals no significant stenosis. Neurology is following. Repeat computed tomography scan showed no acute process #3 Chronic and ongoing tobacco dependence. #4 History of hypertension. #5 History of schizophrenia. #6 Hyperlipidemia. #7 difficulty swallowing and failed swallow study. We'll start on gentle hydration and repeat swallow evaluation Plan: Patiently continued on antibiotics in the form of ceftriaxone and azithromycin. Continue the breathing treatments and IV steroids. And follow closely. Neurology and pulmonary is on board. Patient is still encephalopathic but improving slowly. N0 CVA noted in the repeat CT head. Patient was started on soft diet today. Further recommendations based on the clinical course
[2016-12-06 06:20] LABS: Glucose,Whole Blood 156 mg/dL (75-99)
[2016-12-06] MEDS: INSULIN LISPRO (humaLOG) 300 UNIT/3 ML VIAL SQ SCH ×4 (06:40→21:56)
[2016-12-06] MEDS: methylPREDNISolone SOD SUCCI 125 MG/2 ML VIAL IV SCH ×2 (06:40→13:16)
[2016-12-06] MEDS: PANTOPRAZOLE 40 MG TABLET PO SCH (06:41)
[2016-12-06 06:47] LABS: Basophils % (A) 0 %; CH 28.7; CHCM 32.3; Eosinophils % (A) 0 %; HDW 2.32; HGB 13.3 gm/dL (13.0-17.5); Luc # (Auto) 0.17; Luc % (Auto) 2; Lymphocytes # (A) 0.7 k/uL (1.0-4.8); Lymphocytes % (A) 6 %; MCH 29.6 pg (25.0-35.0); MCHC 33.2 g/dL (31.0-37.0); MCV 89.1 fL (80.0-100.0); Mean Platelet Volume 6.4; Monocytes # (A) 0.6 k/uL (0-1.0); Monocytes % (A) 6 %; Neutrophils # (A) 9.3 k/uL (1.3-7.7); Neutrophils % (A) 86 %; RBC 4.49 m/uL (4.30-5.90); RDW 13.7 % (11.5-15.5); WBC 10.7 k/uL (3.8-10.6); WBC (Perox) 10.57
[2016-12-06 06:59] LABS: Anion Gap 7 mmol/L; Blood Urea Nitrogen 16 mg/dL (9-20); Calcium 9.1 mg/dL (8.4-10.2); Carbon Dioxide 29 mmol/L (22-30); Chloride 106 mmol/L (98-107); Glucose 152 mg/dL (74-99); Non-African American GFR(MDRD) >60 (>60 ml/min/1.73 sqM); Potassium 3.8 mmol/L (3.5-5.1); Sodium 142 mmol/L (137-145)
[2016-12-06] MEDS: IPRATROPIUM-ALBUTEROL 3 ML NEB INHALATION SCH ×4 (07:07→19:36)
[2016-12-06] MEDS: DEXTROSE 5%-0.45% NACL 1,000 ML IV SCH ×2 (09:33→21:59)
[2016-12-06] MEDS: AZITHROMYCIN 500 MG in SODIUM CHLORIDE 0.9% 250 ML IVPB SCH (09:34)
[2016-12-06] MEDS: amLODIPine 5 MG TAB PO SCH (09:34)
[2016-12-06] MEDS: cloZAPine 100 MG TAB PO SCH ×3 (09:34→21:56)
[2016-12-06] MEDS: DOCUSATE 100 MG CAP PO SCH ×2 (09:35→21:56)
[2016-12-06] MEDS: BENZTROPINE MESYLATE 1 MG TAB PO SCH ×2 (09:35→21:56)
[2016-12-06] MEDS: clonazePAM 1 MG TAB PO SCH ×2 (09:44→21:56)
[2016-12-06 11:59] LABS: Glucose,Whole Blood 139 mg/dL (75-99)
--- NOTE | 2016-12-06 12:06 | P.PN ---
Subjective Progress note dated 12/05/2016 This is a 51-year-old male seen by my partner yesterday. He has a history of acute exacerbation of COPD, treated by purulent tracheobronchitis versus community-acquired pneumonia/aspiration pneumonia. We strongly doubt pneumonia though based on his chest x-ray and his history. His altered mental status changes but a computed tomography scan which showed no evidence of an acute process chronic and ongoing tobacco dependence hypertension schizophrenia hyperlipidemia DJD. The patient seemed be doing better. Feels better. Less short of breath. Currently on antibiotics bronchodilators and corticosteroids. Should have a swallow evaluation is not ready done. May have to have a PEG tube placement. Other than that seems be doing reasonably well. Progress note dated 12/06/2016 51-year-old male seen by my partner over the weekend. Has a history of underlying COPD with a COPD exacerbation complicated by purulent tracheobronchitis. Chest x-ray really did not show evidence of pneumonia. I reviewed the x-ray on admission. He has a history of deafness altered mental status and history of tobacco dependence with hypertension schizophrenia hyperlipidemia and DJD. The patient is doing better. Wants to be discharged home. From my perspective the patient could be discharged home. The patient continues on antibiotics bronchodilators corticosteroids. Not sure whether or not his swallow evaluation was done. There was some concern that he might benefit from a PEG tube is her may be chronic aspiration. Objective - Vital Signs Vital signs: Vital Signs Temp 97.1 F L 12/06/16 08:00 Pulse 69 12/06/16 08:00 Resp 16 12/06/16 08:00 BP 144/72 12/06/16 08:00 Pulse Ox 91 L 12/06/16 08:00 Intake & Output 12/05/16 12/06/16 12/06/16 18:59 06:59 18:59 Intake Total 400 640 Balance 400 640 Weight 70 kg Intake: Intake, IV Titration 640 Amount Dextrose 5%-0.45% NaCl 1, 640 000 ml @ 80 mls/hr IV . [id number] [facility] Rx#:[id number] Oral 400 Other: Voiding Method Toilet Toilet Incontinent Incontinent # Voids 2 1 1 - Exam No acute distress, oriented 3. No respiratory distress. HEENT examination is grossly unremarkable. Mucous membranes are moist. No oral lesions. Neck supple. Full range of motion. No adenopathy or thyromegaly. Cardiovascular examination reveals regular rhythm rate. S1-S2 normal. No S3- S4 or murmur. Lungs reveal a few coarse rhonchi. Breath sounds are diminished. Some expiratory wheezes. Breath sounds are equal but diminished throughout. There is prolongation on forced maneuver. Abdomen soft bowel sounds are heard. Semis are intact. No cyanosis clubbing or edema. Skin without rash. Neurologic examination is nonfocal. - Labs CBC & Chem 7: 12/06/16 06:17 12/06/16 06:17 Labs: Abnormal Lab Results - Last 24 Hours (Table) 12/05/16 12/05/16 12/05/16 Range/Units 15:12 16:53 20:49 WBC (3.8-10.6) k/uL Neutrophils # (1.3-7.7) k/uL Lymphocytes # (1.0-4.8) k/uL BUN 22 H (9-20) mg/dL Creatinine 0.60 L (0.66-1.25) mg/dL Glucose 162 H (74-99) mg/dL POC Glucose (mg/dL) 148 H 201 H (75-99) mg/dL 12/06/16 12/06/16 12/06/16 Range/Units 06:01 06:17 06:17 WBC 10.7 H (3.8-10.6) k/uL Neutrophils # 9.3 H (1.3-7.7) k/uL Lymphocytes # 0.7 L (1.0-4.8) k/uL BUN (9-20) mg/dL Creatinine (0.66-1.25) mg/dL Glucose 152 H (74-99) mg/dL POC Glucose (mg/dL) 156 H (75-99) mg/dL 12/06/16 Range/Units 11:55 WBC (3.8-10.6) k/uL Neutrophils # (1.3-7.7) k/uL Lymphocytes # (1.0-4.8) k/uL BUN (9-20) mg/dL Creatinine (0.66-1.25) mg/dL Glucose (74-99) mg/dL POC Glucose (mg/dL) 139 H (75-99) mg/dL Assessment and Plan (1) Hypertension Status: Acute (2) DJD (degenerative joint disease) Status: Acute (3) Acute encephalopathy Status: Acute (4) Pneumonia Status: Acute (5) Schizophrenia Status: Acute (6) TIA (transient ischemic attack) Status: Acute (7) COPD (chronic obstructive pulmonary disease) Status: Acute Plan: Plan dated 12/05/2016 The patient's overall lung status seems to be somewhat improved. We'll continue to follow closely. The patient will continue on oxygen therapy bronchodilators corticosteroids and antibiotics. Neurology is following his mental status is reasonably evaluated by speech pathology for his swallow competency. We'll continue to follow. Prognosis is guarded. Plan dated 12/06/2016 The patient seemed be doing relatively well. Overall lung status has improved. The patient's basically begging to go home. The patient looks very comfortable. The patient continues on antibiotics bronchodilators and oxygen. The patient should've follow-up with speech pathology to evaluate his swallow competency. Additional recommendations are made. Chest x-ray on admission was free of infiltrates. Time with Patient: Less than 30
[2016-12-06 17:36] LABS: Glucose,Whole Blood 132 mg/dL (75-99)
[2016-12-06 20:55] LABS: Glucose,Whole Blood 175 mg/dL (75-99)
[2016-12-06] MEDS: methylPREDNISolone SOD SUCCI 40 MG/ML 1 ML VIAL IV SCH (23:27)
--- NOTE | 2016-12-07 00:32 | P.PN ---
Subjective Principal diagnosis: Acute COPD exacerbation and purulent tracheobronchitis This is a 51-year-old gentleman who has a history of schizoaffective disorder, deafness, chronic and ongoing tobacco dependence, hypertension who presented there earlier this week with complaints of a nonproductive cough and fever, 2 days. He was diagnosed with a left lower lobe pneumonia and hyponatremia and was recommended inpatient IV antibiotics. At that time the patient had left AMA on 11/28/2016. Patient came back to the hospital and found to have encephalopathic. 12/03/2016 Patient is very drowsy but still a arousable. Denies any complaints of chest pain. No nausea vomiting or abdominal pain chest x-ray and CT chest that was done showed improvement in inflammatory changes.. Patient had repeat computed tomography scan of the head was done due to and Savella for the showed no acute CVA. Neurology and pulmonary is following this patient. 12/04/2016 Patient is more awake and oriented today. currently nothing by mouth and will be started on D5 half normal saline. Patient is to have wheezing and decreased air entry bilaterally. Swallow study will be attempted again next week. No fever no chills. 12/05/2016 Patient is more awake and oriented. Patient was started on soft diet. No fever no chills. No complaints of chest pain or short of breath. 12/06/2016 Patients respiratory status is much improved now. Patient is tolerating diet. Patient denied any complaints of chest pain or short of breath. No fever no chills. Patient wants to be discharged home. Spoke to the patient with a help of diplomatic interpreter/translator. Anticipate discharge tomorrow. Objective - Vital Signs Vital signs: Vital Signs Temp 97.0 F L 12/06/16 15:20 Pulse 74 12/06/16 19:51 Resp 16 12/06/16 15:20 BP 143/82 12/06/16 15:20 Pulse Ox 95 12/06/16 15:20 Intake & Output 12/06/16 12/06/16 12/07/16 06:59 18:59 06:59 Intake Total 640 Balance 640 Weight 70 kg Intake: Intake, IV Titration 640 Amount Dextrose 5%-0.45% NaCl 1, 640 000 ml @ 80 mls/hr IV . [id number] [facility] Rx#:[id number] Other: Voiding Method Toilet Toilet Incontinent Incontinent # Voids 1 1 - Exam PHYSICAL EXAMINATION: Patient is lying in the bed comfortably, no acute distress, awake alert but seems to be very drowsy.. HEENT: Normocephalic. Neck is supple. Pupils reactive. Nostrils clear. Oral cavity is moist. Ears reveal no drainage. Neck reveals no JVD, carotid bruits, or thyromegaly. CHEST EXAMINATION: Trachea is central. Symmetrical expansion. Bilateral air entry improved. Minimal wheezing at the bases CARDIAC: Normal S1, S2 with no gallops. No murmurs ABDOMEN: Soft. Bowel sounds normal. No organomegaly. No abdominal bruits. Extremities reveal no edema. No clubbing or cyanosis Neurologically awake, alert, oriented x3 with well-coordinated movements. Patient is deaf Skin: no rash or skin lesions Musculoskeletal: no joint swelling or deformity. - Labs CBC & Chem 7: 12/06/16 06:17 12/06/16 06:17 Labs: Abnormal Lab Results - Last 24 Hours (Table) 12/06/16 12/06/16 12/06/16 Range/Units 06:01 06:17 06:17 WBC 10.7 H (3.8-10.6) k/uL Neutrophils # 9.3 H (1.3-7.7) k/uL Lymphocytes # 0.7 L (1.0-4.8) k/uL Glucose 152 H (74-99) mg/dL POC Glucose (mg/dL) 156 H (75-99) mg/dL 12/06/16 12/06/16 12/06/16 Range/Units 11:55 17:18 20:54 WBC (3.8-10.6) k/uL Neutrophils # (1.3-7.7) k/uL Lymphocytes # (1.0-4.8) k/uL Glucose (74-99) mg/dL POC Glucose (mg/dL) 139 H 132 H 175 H (75-99) mg/dL Assessment and Plan Plan: #1 Acute exacerbation of chronic obstructive pulmonary disease, complicated by purulent tracheobronchitis versus community-acquired pneumonia. #2 Altered mental status/encephalopathy of unclear etiology. Computed tomography scan of the brain reveals no acute intracranial process. CT angiogram reveals no significant stenosis. Neurology is following. Repeat computed tomography scan showed no acute process #3 Chronic and ongoing tobacco dependence. #4 History of hypertension. #5 History of schizophrenia. #6 Hyperlipidemia. #7 difficulty swallowing and failed swallow study. We'll start on gentle hydration and repeat swallow evaluation Plan: Patiently continued on antibiotics in the form of ceftriaxone and azithromycin. Continue the breathing treatments and IV steroids. Methylprednisolone changed to 40 mg every 8 hourly. And follow closely. Encephalopathy much improved. Neurology and pulmonary is on board. N0 CVA noted in the repeat CT head. Patient was started on soft diet today. Tolerating well. Anticipate discharge in next 1-2 days. Will titrate oxygen therapy to room air Further recommendations based on the clinical course
[2016-12-07] MEDS: IPRATROPIUM-ALBUTEROL 3 ML NEB INHALATION SCH ×4 (07:40→20:07)
[2016-12-07 07:42] LABS: Glucose,Whole Blood 111 mg/dL (75-99)
[2016-12-07] MEDS: INSULIN LISPRO (humaLOG) 300 UNIT/3 ML VIAL SQ SCH ×4 (07:44→22:08)
[2016-12-07] MEDS: BENZTROPINE MESYLATE 1 MG TAB PO SCH ×2 (08:26→20:59)
[2016-12-07] MEDS: DOCUSATE 100 MG CAP PO SCH ×2 (08:27→21:00)
[2016-12-07] MEDS: amLODIPine 5 MG TAB PO SCH (08:27)
[2016-12-07] MEDS: PANTOPRAZOLE 40 MG TABLET PO SCH (08:27)
[2016-12-07] MEDS: AZITHROMYCIN 500 MG TAB PO SCH (08:27)
[2016-12-07] MEDS: methylPREDNISolone SOD SUCCI 40 MG/ML 1 ML VIAL IV SCH ×2 (08:27→16:41)
[2016-12-07] MEDS: cloZAPine 100 MG TAB PO SCH ×3 (08:27→20:59)
[2016-12-07] MEDS: clonazePAM 1 MG TAB PO SCH ×2 (08:28→21:07)
[2016-12-07] MEDS: DEXTROSE 5%-0.45% NACL 1,000 ML IV SCH ×2 (10:48→20:59)
[2016-12-07 12:37] LABS: Glucose,Whole Blood 111 mg/dL (75-99)
--- NOTE | 2016-12-07 13:49 | P.PN ---
Subjective This is a 51-year-old gentleman who has a history of schizoaffective disorder, deafness, chronic and ongoing tobacco dependence, hypertension. He follows with Dr. Valente and [facility] in the [facility]. He presented there earlier this week with complaints of a nonproductive cough and fever, 2 days. He was diagnosed with a left lower lobe pneumonia and hyponatremia and was recommended inpatient IV antibiotics. At that time the patient had left AMA on 11/28/2016. He went to his [facility] worker who brought him back to the emergency department he was subsequently admitted. A computed tomography scan of the brain did not reveal any acute intracranial process. A computed tomography scan of the chest without contrast revealed bilateral pneumonic infiltrates worse in the lingula left upper lobe and left lower lobe that was actually improved compared to an old computed tomography scan in 06/21/2015. He had healed granulomatous disease. No evidence of pulmonary mass. There is no new pulmonary infiltrate compared to the previous exam. He had been initiated on Rocephin and azithromycin. He had ongoing issues with shortness of breath, cough and congestion along with altered mental status and was subsequently transferred here for further evaluation. He was originally admitted to the regular medical floor. A code stroke was called and the patient earlier this morning based on worsening mental status, drooling and right-sided weakness during a transfer to the bedside commode chair. A computed tomography scan of the brain revealed no acute intracranial process. CT angiogram revealed no significant stenosis. His chest x-ray reveals no acute cardiopulmonary process. There is some underlying pulmonary arterial hypertension suspected secondary to hilar prominence. He is seen today in consultation on the selective care unit. No information is able to be pain from the patient. He is currently maintaining O2 saturations in the mid 90s on 4 L/m per nasal cannula. He is afebrile. No leukocytosis. No tachycardia, no tachypnea. Hemodynamically stable. The patient is seen again today 12/07/2016 in follow-up on the regular medical floor. He is awake and alert in no acute distress. He is maintaining good O2 saturations in the 90s on 2 L/m per nasal cannula. He has been afebrile. No tachycardia. No tachypnea. Objective - Vital Signs Vital signs: Vital Signs Temp 96.6 F L 12/07/16 07:00 Pulse 72 12/07/16 11:19 Resp 18 12/07/16 08:00 BP 161/89 12/07/16 07:00 Pulse Ox 92 L 12/07/16 07:00 Intake & Output 12/06/16 12/07/16 12/07/16 18:59 06:59 18:59 Weight 79.5 kg Other: Voiding Method Toilet Toilet Incontinent Incontinent # Voids 1 1 - Exam No acute distress, oriented 3. No respiratory distress. HEENT examination is grossly unremarkable. Mucous membranes are moist. No oral lesions. Neck supple. Full range of motion. No adenopathy or thyromegaly. Cardiovascular examination reveals regular rhythm rate. S1-S2 normal. No S3- S4 or murmur. Lungs reveal a few coarse rhonchi. Breath sounds are diminished. Some expiratory wheezes. Breath sounds are equal but diminished throughout. There is prolongation on forced maneuver. Abdomen soft bowel sounds are heard. Semis are intact. No cyanosis clubbing or edema. Skin without rash. Neurologic examination is nonfocal. - Labs CBC & Chem 7: 12/06/16 06:17 12/06/16 06:17 Labs: Abnormal Lab Results - Last 24 Hours (Table) 12/06/16 12/06/16 12/07/16 Range/Units 17:18 20:54 07:40 POC Glucose (mg/dL) 132 H 175 H 111 H (75-99) mg/dL 12/07/16 Range/Units 12:36 POC Glucose (mg/dL) 111 H (75-99) mg/dL Assessment and Plan Plan: Impression: #1 Acute exacerbation of chronic obstructive pulmonary disease, complicated by purulent tracheobronchitis no clear evidence of community-acquired pneumonia. #2 Altered mental status of unclear etiology. Computed tomography scan of the brain reveals no acute intracranial process. CT angiogram reveals no significant stenosis. Neurology consult pending. #3 Chronic and ongoing tobacco dependence. #4 History of hypertension. #5 History of schizophrenia. #6 Hyperlipidemia. #7 History of degenerative joint disease. Plan: The patient was seen and evaluated by Dr. Vieira. He is cleared for discharge from the pulmonary standpoint. He can complete a prednisone taper. He could follow-up in our office in 1-2 weeks' time. He would benefit from outpatient pulmonary function test to evaluate the severity of his COPD. We will make further recommendations based on these findings.
[2016-12-07 16:38] LABS: Glucose,Whole Blood 163 mg/dL (75-99)
[2016-12-07 21:21] LABS: Glucose,Whole Blood 154 mg/dL (75-99)
--- NOTE | 2016-12-07 23:02 | P.PN ---
Subjective Principal diagnosis: Acute COPD exacerbation and purulent tracheobronchitis This is a 51-year-old gentleman who has a history of schizoaffective disorder, deafness, chronic and ongoing tobacco dependence, hypertension who presented there earlier this week with complaints of a nonproductive cough and fever, 2 days. He was diagnosed with a left lower lobe pneumonia and hyponatremia and was recommended inpatient IV antibiotics. At that time the patient had left AMA on 11/28/2016. Patient came back to the hospital and found to have encephalopathic. 12/03/2016 Patient is very drowsy but still a arousable. Denies any complaints of chest pain. No nausea vomiting or abdominal pain chest x-ray and CT chest that was done showed improvement in inflammatory changes.. Patient had repeat computed tomography scan of the head was done due to and Savella for the showed no acute CVA. Neurology and pulmonary is following this patient. 12/04/2016 Patient is more awake and oriented today. currently nothing by mouth and will be started on D5 half normal saline. Patient is to have wheezing and decreased air entry bilaterally. Swallow study will be attempted again next week. No fever no chills. 12/05/2016 Patient is more awake and oriented. Patient was started on soft diet. No fever no chills. No complaints of chest pain or short of breath. 12/06/2016 Patients respiratory status is much improved now. Patient is tolerating diet. Patient denied any complaints of chest pain or short of breath. No fever no chills. Patient wants to be discharged home. Spoke to the patient with a help of spanish interpreter/translator. Anticipate discharge tomorrow. 12/07/2016 Patient's respiratory status is much improved now. Steroids changed to by mouth. Patient wants to be discharged home. Poultry [employer] at bedside. Otherwise patient denied any fever or chills. No chest pain. No worsening short of breath. Objective - Vital Signs Vital signs: Vital Signs Temp 97.8 F 12/07/16 17:57 Pulse 76 12/07/16 20:26 Resp 16 12/07/16 17:57 BP 154/79 12/07/16 17:57 Pulse Ox 93 L 12/07/16 17:57 Intake & Output 12/07/16 12/07/16 12/08/16 06:59 18:59 06:59 Weight 79.5 kg Other: Voiding Method Bedside Commode # Voids 3 - Exam PHYSICAL EXAMINATION: Patient is lying in the bed comfortably, no acute distress, awake alert but seems to be very drowsy.. HEENT: Normocephalic. Neck is supple. Pupils reactive. Nostrils clear. Oral cavity is moist. Ears reveal no drainage. Neck reveals no JVD, carotid bruits, or thyromegaly. CHEST EXAMINATION: Trachea is central. Symmetrical expansion. Bilateral air entry improved. Minimal wheezing at the bases CARDIAC: Normal S1, S2 with no gallops. No murmurs ABDOMEN: Soft. Bowel sounds normal. No organomegaly. No abdominal bruits. Extremities reveal no edema. No clubbing or cyanosis Neurologically awake, alert, oriented x3 with well-coordinated movements. Patient is deaf Skin: no rash or skin lesions Musculoskeletal: no joint swelling or deformity. - Labs CBC & Chem 7: 12/06/16 06:17 12/06/16 06:17 Labs: Abnormal Lab Results - Last 24 Hours (Table) 12/07/16 12/07/16 12/07/16 Range/Units 07:40 12:36 16:37 POC Glucose (mg/dL) 111 H 111 H 163 H (75-99) mg/dL Assessment and Plan Plan: #1 Acute exacerbation of chronic obstructive pulmonary disease, complicated by purulent tracheobronchitis versus community-acquired pneumonia. #2 Altered mental status/encephalopathy of unclear etiology. Computed tomography scan of the brain reveals no acute intracranial process. CT angiogram reveals no significant stenosis. Neurology is following. Repeat computed tomography scan showed no acute process #3 Chronic and ongoing tobacco dependence. #4 History of hypertension. #5 History of schizophrenia. #6 Hyperlipidemia. #7 difficulty swallowing and failed swallow study. We'll start on gentle hydration and repeat swallow evaluation Plan: Patiently continued on antibiotics in the form of ceftriaxone and azithromycin. Continue the breathing treatments and IV steroids. Change to by mouth today. Encephalopathy much improved. Neurology and pulmonary is on board. N0 CVA noted in the repeat CT head. Patient was started on soft diet today. Tolerating well. Anticipate discharge in next 1-2 days. Will titrate oxygen therapy to room air Further recommendations based on the clinical course Time with Patient: Greater than 30
[2016-12-08 07:11] LABS: Glucose,Whole Blood 109 mg/dL (75-99)
[2016-12-08] MEDS: IPRATROPIUM-ALBUTEROL 3 ML NEB INHALATION SCH ×4 (07:27→20:10)
--- NOTE | 2016-12-08 08:12 | XR ---
EXAMINATION TYPE: XR chest 1V portable DATE OF EXAM: 12/08/2016 HISTORY: Shortness of breath. COMPARISON: December 02, 2016 TECHNIQUE: Single view of the chest is submitted. FINDINGS: Demonstrated are scattered senescent parenchymal change. There is no evidence for focal infiltrate. Stable granuloma left mid lung zone. The heart is stable. Hilar and mediastinal structures are within normal limits. Degenerative changes are seen of the dorsal spine. IMPRESSION: 1. Chronic changes without evidence for acute pulmonary disease.
[2016-12-08] MEDS: BENZTROPINE MESYLATE 1 MG TAB PO SCH ×2 (08:46→21:30)
[2016-12-08] MEDS: clonazePAM 1 MG TAB PO SCH ×2 (08:47→21:29)
[2016-12-08] MEDS: INSULIN LISPRO (humaLOG) 300 UNIT/3 ML VIAL SQ SCH ×4 (08:47→21:24)
[2016-12-08] MEDS: AZITHROMYCIN 500 MG TAB PO SCH (08:47)
[2016-12-08] MEDS: predniSONE 50 MG TAB PO SCH (08:47)
[2016-12-08] MEDS: amLODIPine 5 MG TAB PO SCH (08:47)
[2016-12-08] MEDS: cloZAPine 100 MG TAB PO SCH ×3 (08:47→21:29)
[2016-12-08] MEDS: DOCUSATE 100 MG CAP PO SCH ×2 (08:47→21:30)
[2016-12-08] MEDS: PANTOPRAZOLE 40 MG TABLET PO SCH (08:47)
[2016-12-08] MEDS: DEXTROSE 5%-0.45% NACL 1,000 ML IV SCH ×2 (09:50→21:30)
--- NOTE | 2016-12-08 12:43 | P.DS ---
Providers Date of admission: 12/01/16 17:17 Final Diagnoses: #1 Acute exacerbation of chronic obstructive pulmonary disease, complicated by purulent tracheobronchitis versus community-acquired pneumonia. #2 Altered mental status/encephalopathy of unclear etiology. Computed tomography scan of the brain reveals no acute intracranial process. CT angiogram reveals no significant stenosis. Neurology is following. Repeat computed tomography scan showed no acute process #3 Chronic and ongoing tobacco dependence. #4 History of hypertension. #5 History of schizophrenia. #6 Hyperlipidemia. #7 difficulty swallowing and failed swallow study. We'll start on gentle hydration and repeat swallow evaluation Hospital course: This is a 51-year-old gentleman who has a history of schizoaffective disorder, deafness, chronic and ongoing tobacco dependence, hypertension who presented there earlier this week with complaints of a nonproductive cough and fever, 2 days. He was diagnosed with a left lower lobe pneumonia and hyponatremia and was recommended inpatient IV antibiotics. At that time the patient had left AMA on 11/28/2016. Evaluated by Pulmonary and urology. Patient returned to the hospital and found to have encephalopathic.Repeat computed tomography scan of the head showed no acute CVA. Maintained on antibiotics in the form of ceftriaxone and azithromycin.CLeared by all consults for dc. Patient is being discharged to [facility] in a stable condition in a guarded prognosis. The impression and plan of care has been dictated as directed as a scribe. : I performed a H&P examination of this patient and discussed the same with the dictator. I agree with the dictator's note. Any additional findings/opinions/ etc. will be noted. Expected date of discharge: 12/08/16 Attending physician: Abelardo Snyder Consults: 12/01/16 18:31 Consult Physician Routine Consulting Provider: Rahul Smith Consult Reason/Comments: hypoxia Do you want consulting provider notified?: Yes 12/02/16 10:38 Consult Physician Urgent Consulting Provider: Amarjit Barragan Consult Reason/Comments: mental status change Do you want consulting provider notified?: Yes 12/02/16 10:52 Consult Physician Routine Consulting Provider: Rahul Smith Consult Reason/Comments: hypoxia,pneumonia Do you want consulting provider notified?: Yes Primary care physician: Rupert Huerta at [facility] Patient Condition at Discharge: Stable Plan - Discharge Summary New Discharge Prescriptions: New cloZAPine [Clozaril] 100 mg PO BID@0800,1200 tab predniSONE 10 mg PO DIRECTED #30 tab Atenolol [Tenormin] 25 mg PO DAILY #1 tab Amoxic-Pot Clav 875-125Mg [Augmentin 875-125] 1 tab PO Q12HR #14 tablet Continue amLODIPine [Norvasc] 5 mg PO DAILY cloZAPine [Clozaril] 100 mg PO BID Benztropine Mesylate 1 mg PO BID Omeprazole [PriLOSEC] 20 mg PO AC-BRKFST cloZAPine [Clozapine] 400 mg PO HS Nicotine 21Mg/24Hr Patch [Habitrol] 1 patch TRANSDERM DAILY clonazePAM [KlonoPIN] 1 mg PO BID #10 Ipratropium-Albuterol Nebulize [Duoneb 0.5 mg-3 mg/3 ml Soln] 3 ml INHALATION RT-QID #120 ampul.neb Discontinued Haloperidol Decanoate [Haldol D] 100 mg IM Q14D Azithromycin [Zithromax Z-pack] See Taper PO DAILY Benztropine Mesylate [Cogentin] 1 mg PO BID Discharge Medication List Benztropine Mesylate 1 mg PO BID 06/22/15 [History] Omeprazole [PriLOSEC] 20 mg PO AC-BRKFST 06/22/15 [History] amLODIPine [Norvasc] 5 mg PO DAILY 06/22/15 [History] cloZAPine [Clozapine] 400 mg PO HS 06/22/15 [History] cloZAPine [Clozaril] 100 mg PO BID 06/22/15 [History] Nicotine 21Mg/24Hr Patch [Habitrol] 1 patch TRANSDERM DAILY 12/01/16 [History] Amoxic-Pot Clav 875-125Mg [Augmentin 875-125] 1 tab PO Q12HR #14 tablet [Rx] Atenolol [Tenormin] 25 mg PO DAILY #1 tab 12/08/16 [Rx] Ipratropium-Albuterol Nebulize [Duoneb 0.5 mg-3 mg/3 ml Soln] 3 ml INHALATION RT -QID #120 ampul.neb 12/08/16 [Rx] cloZAPine [Clozaril] 100 mg PO BID@0800,1200 tab 12/08/16 [Rx] clonazePAM [KlonoPIN] 1 mg PO BID #10 12/08/16 [Rx] predniSONE 10 mg PO DIRECTED #30 tab 12/08/16 [Rx] Follow up Appointment(s)/Referral(s): Rahul Smith MD [STAFF PHYSICIAN] - 2 Weeks Amarjit Barragan MD [STAFF PHYSICIAN] - 2 Weeks Rupert Valente MD [Primary Care Provider] - 1 Week (after dc from [facility]) Enrique Huerta MD [REFERRING] - 3 Days (at [facility]) Activity/Diet/Wound Care/Special Instructions: CBC,BMp in 3 days Pt. Will need an molasses preparer, for transport and at [facility] Diet: Soft foods- Ill fitting dentures,aspiration precautions, Activity: as tolerated
[2016-12-08 12:53] LABS: Glucose,Whole Blood 134 mg/dL (75-99)
--- NOTE | 2016-12-08 13:01 | P.PN ---
Subjective This is a 51-year-old gentleman who has a history of schizoaffective disorder, deafness, chronic and ongoing tobacco dependence, hypertension. He follows with Dr. Valente and [facility] in the [facility], [place], operated by [facility]. He presented there earlier this week with complaints of a nonproductive cough and fever, 2 days. He was diagnosed with a left lower lobe pneumonia and hyponatremia and was recommended inpatient IV antibiotics. At that time the patient had left AMA on 11/28/2016. He went to his [facility] worker who brought him back to the emergency department he was subsequently admitted. A computed tomography scan of the brain did not reveal any acute intracranial process. A computed tomography scan of the chest without contrast revealed bilateral pneumonic infiltrates worse in the lingula left upper lobe and left lower lobe that was actually improved compared to an old computed tomography scan in 06/21/2015. He had healed granulomatous disease. No evidence of pulmonary mass. There is no new pulmonary infiltrate compared to the previous exam. He had been initiated on Rocephin and azithromycin. He had ongoing issues with shortness of breath, cough and congestion along with altered mental status and was subsequently transferred here for further evaluation. He was originally admitted to the regular medical floor. A code stroke was called and the patient earlier this morning based on worsening mental status, drooling and right-sided weakness during a transfer to the bedside commode chair. A computed tomography scan of the brain revealed no acute intracranial process. CT angiogram revealed no significant stenosis. His chest x-ray reveals no acute cardiopulmonary process. There is some underlying pulmonary arterial hypertension suspected secondary to hilar prominence. He is seen today in consultation on the selective care unit. No information is able to be pain from the patient. He is currently maintaining O2 saturations in the mid 90s on 4 L/m per nasal cannula. He is afebrile. No leukocytosis. No tachycardia, no tachypnea. Hemodynamically stable. The patient is seen again today 12/07/2016 in follow-up on the regular medical floor. He is awake and alert in no acute distress. He is maintaining good O2 saturations in the 90s on 2 L/m per nasal cannula. He has been afebrile. No tachycardia. No tachypnea. The patient is seen again today 12/08/2016 in follow-up on the regular medical floor. He is doing well from the pulmonary standpoint. He still has some rhonchorous respirations and a loose nonproductive cough. But feels he is nearly back to his baseline. He is maintaining O2 saturations in the mid 90s on 3 L/m per nasal cannula. His been afebrile. Hemodynamically stable. His chest x-ray today reveals chronic changes without evidence of acute pulmonary disease. An certified court/medical interpreter is at the bedside. Objective - Vital Signs Vital signs: Vital Signs Temp 96.3 F L 12/08/16 07:00 Pulse 78 12/08/16 11:54 Resp 20 12/08/16 07:00 BP 177/93 12/08/16 07:00 Pulse Ox 91 L 12/08/16 07:30 Intake & Output 12/07/16 12/08/16 12/08/16 18:59 06:59 18:59 Output Total 500 Balance -500 Weight 99 kg Output: Urine 500 Other: Voiding Method Bedside Commode # Voids 3 - Exam No acute distress, oriented 3. No respiratory distress. HEENT examination is grossly unremarkable. Mucous membranes are moist. No oral lesions. Neck supple. Full range of motion. No adenopathy or thyromegaly. Cardiovascular examination reveals regular rhythm rate. S1-S2 normal. No S3- S4 or murmur. Lungs reveal a few coarse rhonchi. Breath sounds are diminished. Some expiratory wheezes. Breath sounds are equal but diminished throughout. There is prolongation on forced maneuver. Abdomen soft bowel sounds are heard. Semis are intact. No cyanosis clubbing or edema. Skin without rash. Neurologic examination is nonfocal. - Labs CBC & Chem 7: 12/06/16 06:17 12/06/16 06:17 Labs: Abnormal Lab Results - Last 24 Hours (Table) 12/07/16 12/07/16 12/08/16 Range/Units 16:37 21:20 07:05 POC Glucose (mg/dL) 163 H 154 H 109 H (75-99) mg/dL 12/08/16 Range/Units 12:26 POC Glucose (mg/dL) 134 H (75-99) mg/dL Assessment and Plan Plan: Impression: #1 Acute exacerbation of chronic obstructive pulmonary disease, complicated by purulent tracheobronchitis no clear evidence of community-acquired pneumonia. #2 Altered mental status of unclear etiology. Recovered. #3 Chronic and ongoing tobacco dependence. #4 History of hypertension. #5 History of schizophrenia. #6 Hyperlipidemia. #7 History of degenerative joint disease. #8 Deafness. Plan: The patient was seen and evaluated by Dr. Vieira. He is cleared for discharge from the pulmonary standpoint. He can complete a prednisone taper. Complete his antibiotics. He could follow-up in our office in 1-2 weeks' time. We will plan an outpatient pulmonary function test to evaluate the severity of his COPD. We will make further recommendations based on these findings.
[2016-12-08 14:22] VITALS: BMI 32.2
--- NOTE | 2016-12-08 16:23 | P.PN ---
Subjective Progress note being dictated for Dr. Robertson. Interval history:This is a 51-year-old gentleman who has a history of schizoaffective disorder, deafness, chronic and ongoing tobacco dependence, hypertension who presented there earlier this week with complaints of a nonproductive cough and fever, 2 days. He was diagnosed with a left lower lobe pneumonia and hyponatremia and was recommended inpatient IV antibiotics. At that time the patient had left AMA on 11/28/2016. Patient came back to the hospital and found to have encephalopathic. 12/03/2016 Patient is very drowsy but still a arousable. Denies any complaints of chest pain. No nausea vomiting or abdominal pain chest x-ray and CT chest that was done showed improvement in inflammatory changes.. Patient had repeat computed tomography scan of the head was done due to and Savella for the showed no acute CVA. Neurology and pulmonary is following this patient. 12/04/2016 Patient is more awake and oriented today. currently nothing by mouth and will be started on D5 half normal saline. Patient is to have wheezing and decreased air entry bilaterally. Swallow study will be attempted again next week. No fever no chills. 12/05/2016 Patient is more awake and oriented. Patient was started on soft diet. No fever no chills. No complaints of chest pain or short of breath. 12/06/2016 Patients respiratory status is much improved now. Patient is tolerating diet. Patient denied any complaints of chest pain or short of breath. No fever no chills. Patient wants to be discharged home. Spoke to the patient with a help of county historian. Anticipate discharge tomorrow. 12/07/2016 Patient's respiratory status is much improved now. Steroids changed to by mouth. Patient wants to be discharged home. Nitrogen Operator at bedside. Otherwise patient denied any fever or chills. No chest pain. No worsening short of breath. county historian at bedside. continues to do well, maintaining O2 sats in the 90s on 3 L nasal cannula. Chest x-ray reporting chronic changes without acute pulmonary disease. Denies chest pain, palpitations or increasing shortness of breath. Objective - Vital Signs Vital signs: Vital Signs Temp 97.1 F L 12/08/16 15:00 Pulse 82 12/08/16 15:50 Resp 18 12/08/16 15:33 BP 139/92 12/08/16 15:00 Pulse Ox 95 12/08/16 15:00 Intake & Output 12/07/16 12/08/16 12/08/16 18:59 06:59 18:59 Output Total 500 Balance -500 Weight 99 kg 99 kg Output: Urine 500 Other: Voiding Method Bedside Commode # Voids 3 - Exam Patient is lying in the bed comfortably, no acute distress, alert. HEENT: Normocephalic. Neck is supple. Pupils reactive. Nostrils clear. Oral cavity is moist. Neck reveals no JVD, carotid bruits, or thyromegaly. CHEST EXAMINATION: Trachea is central. Symmetrical expansion. Bilateral air entry improved. Scattered coarse rhonchi. Minimal wheezing at the bases CARDIAC: Normal S1, S2 with no gallops. No murmurs ABDOMEN: Soft. Bowel sounds normal. No organomegaly. No abdominal bruits. Extremities reveal no edema. No clubbing or cyanosis Neurologically awake, alert, oriented x3 with well-coordinated movements. Patient is deaf Skin: no rash or skin lesions Musculoskeletal: no joint swelling or deformity. - Labs CBC & Chem 7: 12/06/16 06:17 12/06/16 06:17 Labs: Abnormal Lab Results - Last 24 Hours (Table) 12/07/16 12/07/16 12/08/16 Range/Units 16:37 21:20 07:05 POC Glucose (mg/dL) 163 H 154 H 109 H (75-99) mg/dL 12/08/16 Range/Units 12:26 POC Glucose (mg/dL) 134 H (75-99) mg/dL Assessment and Plan Plan: #1 Acute exacerbation of chronic obstructive pulmonary disease, complicated by purulent tracheobronchitis versus community-acquired pneumonia. #2 Altered mental status/encephalopathy of unclear etiology. Computed tomography scan of the brain reveals no acute intracranial process. CT angiogram reveals no significant stenosis. Neurology is following. Repeat computed tomography scan showed no acute process #3 Chronic and ongoing tobacco dependence. #4 History of hypertension. #5 History of schizophrenia. #6 Hyperlipidemia. #7 difficulty swallowing and failed swallow study. We'll start on gentle hydration and repeat swallow evaluation Plan: Patiently continued on antibiotics in the form of ceftriaxone and azithromycin. Maintain nebulized bronchodilators, steroids. Discharge planning in progress pending confirmation of bed at [facility]. Maintain supportive care. Further recommendations to follow. Nitrogen Operator at bedside, assisted with updating patient on plan of care. The impression and plan of care has been dictated as directed. : I performed a H&P examination of this patient and discussed the same with the dictator. I agree with the dictator's note. Any additional findings/opinions/ etc. will be noted.
[2016-12-08 17:07] LABS: Glucose,Whole Blood 129 mg/dL (75-99)
[2016-12-08 21:01] LABS: Glucose,Whole Blood 126 mg/dL (75-99)
[2016-12-09 07:42] LABS: Glucose,Whole Blood 80 mg/dL (75-99)
[2016-12-09 07:49] VITALS: BP 122/68; RESP 16; TEMP 98.6
[2016-12-09] MEDS: INSULIN LISPRO (humaLOG) 300 UNIT/3 ML VIAL SQ SCH (08:08)
[2016-12-09] MEDS: PANTOPRAZOLE 40 MG TABLET PO SCH (08:13)
[2016-12-09] MEDS: AZITHROMYCIN 500 MG TAB PO SCH (08:13)
[2016-12-09] MEDS: amLODIPine 5 MG TAB PO SCH (08:13)
[2016-12-09] MEDS: clonazePAM 1 MG TAB PO SCH (08:14)
[2016-12-09] MEDS: BENZTROPINE MESYLATE 1 MG TAB PO SCH (08:14)
[2016-12-09] MEDS: predniSONE 50 MG TAB PO SCH (08:14)
[2016-12-09] MEDS: cloZAPine 100 MG TAB PO SCH (08:14)
[2016-12-09] MEDS: DOCUSATE 100 MG CAP PO SCH (08:14)
[2016-12-09] MEDS: IPRATROPIUM-ALBUTEROL 3 ML NEB INHALATION SCH (08:56)
[2016-12-09 09:11] VITALS: PULSE 78
--- NOTE | 2016-12-10 08:17 | PN ---
This is a 51-year-old patient who was admitted a number of days ago. He came in with chronic obstructive pulmonary disease exacerbation complicated by purulent tracheobronchitis. There is really no evidence community-acquired pneumonia. He also came in with altered mental status which has improved, chronic and ongoing tobacco dependence up to 3 packs per day, hypertension, schizophrenia, hyperlipidemia, DJD and deafness. The patient has been dying to go home for a couple of days now. He looks relatively stable. Still wearing nasal O2. The patient does have an drafter topographical. Current vital signs are stable. Heart rate is 82, respiratory rate 16, blood pressure 140/71, saturations are 94% on 2-L. Temperature is normal. Appears in no acute distress. No respiratory distress. HEENT: Examination is grossly unremarkable. NECK: Supple. Full range of motion. No adenopathy or thyromegaly. Neck veins are flat. CARDIOVASCULAR: Examination reveals regular rhythm and rate. S1, S2 normal. There is no S3, no S4 or murmur. LUNGS: Reveals some residual coarse rhonchi. Breath sounds are diminished. Slight prolongation. No wheezes or crackles. He does not really take deep breaths even on command from the drafter topographical. ABDOMEN: Soft, bowel sounds are heard. EXTREMITIES: Intact. No cyanosis, clubbing or edema. SKIN: Without rash. NEUROLOGIC: Examination is difficult to perform. Labs, medications and x-rays are all reviewed. ASSESSMENT: 1. Acute exacerbation of chronic obstructive pulmonary disease complicated by purulent tracheobronchitis. 2. Mental status changes, recovered. 3. Chronic and ongoing tobacco dependence. 4. History of hypertension. 5. Schizophrenia. 6. Hyperlipidemia. 7. Degenerative joint disease. 8. Deafness. PLAN: The patient will be [facility]. We did talk to the durable power of seam presser about the importance of smoking cessation. She states that they have tried to get him to stop smoking in the past. Sometimes he will smoke 2 to 3 a day. The patient otherwise is going to be discharged home with some antibiotics. Steroids would be appropriate as well. Will continue to follow. No additional recommendations are made. MTDD
== END 2016-12-09 11:08 | DRG 190 ==
LOC: EEVIPCON 17:17 → 5MS5E 17:17 → 6SEL 12-02 09:28 → 4MS4W 12-06 08:31
PROVIDERS: ADMIT Hospitalist; ATTEND Hospitalist
DX: J44.0 Chronic obstructive pulmonary disease with (acute) lower respiratory infection (principal); J18.9 Pneumonia, unspecified organism; G93.40 Encephalopathy, unspecified; I27.2 Other secondary pulmonary hypertension; J44.1 Chronic obstructive pulmonary disease with (acute) exacerbation; E78.5 Hyperlipidemia, unspecified; F17.200 Nicotine dependence, unspecified, uncomplicated; F25.9 Schizoaffective disorder, unspecified; H91.90 Unspecified hearing loss, unspecified ear; I10 Essential (primary) hypertension; M19.90 Unspecified osteoarthritis, unspecified site; R09.02 Hypoxemia; Z79.899 Other long term (current) drug therapy; Z80.1 Family history of malignant neoplasm of trachea, bronchus and lung; Z80.52 Family history of malignant neoplasm of bladder; Z82.5 Family history of asthma and other chronic lower respiratory diseases
CPT/HCPCS: 70450; 70496; 70498; 71010; 80048; 80051; 82465; 82550; 82565; 82947; 83036; 83605; 84520; 85025; 85027; 85610; 85730; 94640; 94760; 95819